=== PATIENT | male | born 1980 | race Caucasian/White ===

== ENCOUNTER 2016-07-09 00:37 | Emergency (ER) | payer SELFPAY ==
[~2016-07-09] VITALS: Ht 180.3 cm; Wt 83.9 kg
[2016-07-09 00:39] VITALS: BP 120/91
--- NOTE | 2016-07-09 00:58 | NUR ---
Patient to bed 05.
--- NOTE | 2016-07-09 01:09 | NUR ---
Dr. Mcdonald evaluating patient at bedside.
[2016-07-09] MEDS ORDERED: NACL 0.9% 1,000 ML IV SCH (01:15)
[2016-07-09] MEDS ORDERED: KETOROLAC 30 MG/ML VIAL IVP ONE (01:15)
[2016-07-09] MEDS ORDERED: INSULIN HUMAN REGULAR 100 UNITS/ML 10 ML VIAL IVP ONE (01:15)
--- NOTE | 2016-07-09 02:12 | NUR ---
Patient back from XRAY via wheelchair per tech.
--- NOTE | 2016-07-09 04:20 | NUR ---
Patient discharged with v/s stable. Written and verbal after care instructions given and explained. Patient alert, oriented and verbalized understanding of instructions. Ambulatory with steady gait. All questions addressed prior to discharge. ID band removed. Patient advised to follow up with PMD. Rx of Metformin and Naproxen given. Patient educated on indication of medication including possible reaction and side effects. Opportunity to ask questions provided and answered.
[2016-07-09 04:28] VITALS: BP 122/67
== END 2016-07-09 04:20 | disposition home or self-care (01) ==
LOC: MED 00:37
DX: S20.212A Contusion of left front wall of thorax, initial encounter (principal); W13.2XXA Fall from, out of or through roof, initial encounter; Y93.89 Activity, other specified; Y92.89 Other specified places as the place of occurrence of the external cause; Y99.8 Other external cause status; E11.9 Type 2 diabetes mellitus without complications
CPT/HCPCS: 36415; 71101; 80053; 82948; 83735; 85025; 93005; 96361; 96374; 96375; 99285; J1815; J1885; J7030

== ENCOUNTER 2020-12-14 09:18 | Emergency (ER) | payer MEDICAID ==
[~2020-12-14] VITALS: Ht 180.3 cm; Wt 93.0 kg
[2020-12-14 09:45] VITALS: BP 116/84
--- NOTE | 2020-12-14 10:00 | NUR ---
BIB SELF C/O DIABETIC WOUND RIGHT FOOT X 5 DAYS. BLOOD SUGAR 171 AT THIS TIME. PMH: DM.DENIES N/V/D. AAOX4 WITH EVEN AND STEADY GAIT; LUNGS CLEAR BL; HR EVEN AND REGULAR; PT DENIES ANY FEVER, CP, SOB, OR COUGH AT THIS TIME; PATIENT STATES PAIN OF 0/10 AT THIS TIME
--- NOTE | 2020-12-14 13:43 | NUR ---
Patient being evaluated by DR SMALLS at TRIAGE ROOM. Addendum: 12/14/20 at 1351 by MED1 WOUND CLEANED BY DR SMALLS.
[2020-12-14] MEDS ORDERED: CEPH-588 PO (13:58)
[2020-12-14 14:10] VITALS: BP 138/98
--- NOTE | 2020-12-14 14:10 | NUR ---
GENTLE FOAM WOUND DRESSING APPLIED TO R FOOT. NO BLEEDING OR DRAINAGE NOTED. PT TOLERATED DRESSING WELL.
== END 2020-12-14 14:14 | disposition home or self-care (01) ==
LOC: MED 09:18
DX: S91.301A Unspecified open wound, right foot, initial encounter (principal); E11.9 Type 2 diabetes mellitus without complications; Z79.84 Long term (current) use of oral hypoglycemic drugs; Z79.899 Other long term (current) drug therapy; X58.XXXA Exposure to other specified factors, initial encounter; Y93.89 Activity, other specified; Y92.89 Other specified places as the place of occurrence of the external cause; Y99.8 Other external cause status
CPT/HCPCS: 99283

== ENCOUNTER 2021-01-04 16:16 | Emergency (ER) | payer MEDICAID ==
[~2021-01-04] VITALS: Ht 177.8 cm; Wt 95.3 kg
[~2021-01-04 16:16] MED LIST: CEPH-588 PO
[2021-01-04 16:23] VITALS: BP 142/88
[2021-01-04 17:27] LABS: BASOPHILS % (AUTO) 0.3 % (0.0-2.0); EOSINOPHILS % (AUTO) 0.3 % (0.0-4.0); HEMATOCRIT 42.6 % (36-52); HEMOGLOBIN 14.7 g/dL (12.0-18.0); LYMPHOCYTES # (AUTO) 1.5 K/uL (2.0-11.5); LYMPHOCYTES % (AUTO) 10.8 % (20.5-51.1); MEAN CORPUSCULAR HEMOGLOBIN 31 pg (27-31); MEAN CORPUSCULAR HGB CONC 35 g/dL (33-37); MEAN CORPUSCULAR VOLUME 90.1 fL (80-94); MONOCYTES # (AUTO) 0.8 K/uL (0.8-1.0); MONOCYTES % (AUTO) 5.9 % (1.7-9.3); NEUTROPHILS # (AUTO) 11.7 K/uL (1.8-7.7); NEUTROPHILS % (AUTO) 82.7 % (42.2-75.2); PLATELET COUNT (AUTO) 270 K/uL (140-450); RED BLOOD CELL COUNT(AUTO) 4.73 MIL/uL (4.20-6.10); RED CELL DISTRIBUTION WIDTH 13.1 % (11.6-13.7); WHITE BLOOD COUNT (AUTO) 14.2 K/uL (4.8-10.8)
--- NOTE | 2021-01-04 17:28 | NUR ---
TO ER BED 4
[2021-01-04 17:49] LABS: ALBUMIN 4.2 g/dL (3.4-5.0); ANION GAP 11.5 (8-16); CARBON DIOXIDE 27.2 mmol/L (21-32); CREATININE 0.8 mg/dL (0.6-1.3); POTASSIUM 3.7 mmol/L (3.5-5.1); TOTAL BILIRUBIN 0.5 mg/dL (0.0-1.0)
[2021-01-04] MEDS ORDERED: PIPERACILLIN/TAZOBACTAM 3.375 GM VIAL IV ONE (17:56)
[2021-01-04 17:57] LABS: PROTHROMBIN TIME 9.4 secs (10.8-13.4)
--- NOTE | 2021-01-04 18:00 | NUR ---
40 Y/O MALE C/O DIABETIC ULCER TO BOTTOM OF RIGHT FOOT X3 DAYS. DENIES INJURY/STEPPING ON ANYTHING. PT REPORTS CLEANING WOUND WITH BETADINE. HOLE PRESENT ON BOTTOM OF FOOT. PT HAS SENSATION, ABLE TO AMBULATE AND WIGGLE TOES, PEDAL PULSES +2. -DISCHARGE. PT REPORTS NUMBNESS AND TINGLING. PT A/O X4 WITH EVEN AND UNLABORED RESPIRATIONS. 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
[2021-01-04] MEDS: NACL 0.9% 1,000 ML IV ONE (18:06)
[2021-01-04] MEDS: PIPERACILLIN/TAZOBACTAM 3.375 GM in DEXTROSE 5% 50 ML IV ONE (18:07)
--- NOTE | 2021-01-04 18:20 | NUR ---
DR RASMUSSEN AT BEDSIDE EVALUATING PT
[2021-01-04] MEDS ORDERED: VANCOMYCIN 1,000 MG VIAL ONE (18:40)
[2021-01-04] MEDS: VANCOMYCIN 1,000 MG in DEXTROSE 5% 250 ML IV ONE (18:48)
--- NOTE | 2021-01-04 19:35 | NUR ---
swabbed patient for TRENT, collected and sent to lab
--- NOTE | 2021-01-04 19:36 | NUR ---
received report from Zakia GRECO for continuity of care
--- NOTE | 2021-01-04 19:36 | NUR ---
REPORT GIVEN TO JACLYN RN, TRANSFER OF CARE AT THIS TIME
--- NOTE | 2021-01-04 19:56 | NUR ---
sister at bedside, said that if there are any updates and transfer of facilities let sister know Irene: [phone]
--- NOTE | 2021-01-04 21:04 | NUR ---
Note undone in EDM - 01/04/21 at 2111 by ABRAHAM Patient to be transferred to [facility]. Is being transferred due to higher level of care. Receiving facility has accepting physician and available space. ER physician has signed transfer form. Patient or responsible green party has agreed to transfer and signed form. Patient belongings inventoried and will be sent with patient. Copy of nursing notes, lab reports, EKG, Physicians Orders and X-rays to be sent with patient. Report called to Funmi GRECO packing and final assembly supervisor at receiving facility. [facility] ambulance service has been called for transfer. ETA is unknown at this time.
--- NOTE | 2021-01-04 21:04 | NUR ---
Patient to be transferred to [facility]. Is being transferred due to higher level of care. Receiving facility has accepting physician and available space. ER physician has signed transfer form. Patient or responsible green party has agreed to transfer and signed form. Patient belongings inventoried and will be sent with patient. Copy of nursing notes, lab reports, EKG, Physicians Orders and X-rays to be sent with patient. Report called to Funmi GRECO automobile body repair supervisor at receiving facility. [facility] ambulance service has been called for transfer. ETA is unknown at this time. According to RN automobile body repair supervisor patient will be going to room 202 bed C
--- NOTE | 2021-01-04 22:42 | NUR ---
[facility] TRANSPORT AT BEDSIDE
[2021-01-04 22:49] VITALS: BP 126/90
--- NOTE | 2021-01-04 22:49 | NUR ---
PT TAKEN BY [facility] TO [facility] ROOM 206Q
== END 2021-01-04 22:49 | disposition short-term general hospital (02) ==
LOC: MED 16:16
DX: E11.628 Type 2 diabetes mellitus with other skin complications (principal); L03.115 Cellulitis of right lower limb; Z20.822 Contact with and (suspected) exposure to COVID-19
CPT/HCPCS: 36415; 73630; 80053; 83605; 85025; 85610; 85651; 85730; 86140; 87040; 87426; 96365; 96366; 96367; 99285; J2543; J3370; J7030